=== PATIENT | female | born 1985 | race Caucasian/White ===

== ENCOUNTER 2018-01-10 13:55 | Inpatient (IN) | payer MEDICAID, OTHER ==
[~2018-01-10] VITALS: Ht 180.3 cm; Wt 121.3 kg
[~2018-01-10 13:55] MED LIST: CHLO25 PO; DIVA500T52 PO; LITH300C3 PO; LITH600C PO; QUET200T PO
[2018-01-10] MEDS ORDERED: LEVO25TA9 PO (14:10)
[2018-01-10] MEDS ORDERED: DIPH25 PO (14:11)
[2018-01-10] MEDS ORDERED: METO25 PO (14:11)
[2018-01-10] MEDS ORDERED: TRIH2TAB3 PO (14:12)
[2018-01-10] MEDS ORDERED: CHLO50 PO (14:12)
[2018-01-10] MEDS ORDERED: CHLO100T24 PO (14:13)
[2018-01-10] MEDS ORDERED: TRAZ-147 PO (14:14)
[2018-01-10] MEDS ORDERED: PALI6 PO (14:14)
[2018-01-10 14:40] LABS: AMPHET/METH SCREEN,URINE NEGATIVE (NEGATIVE); BARBITURATE SCREEN, URINE NEGATIVE (NEGATIVE); BENZODIAZEPINES SCREEN,URINE NEGATIVE (NEGATIVE); CANNABINOID SCREEN,URINE NEGATIVE (NEGATIVE); COCAINE SCREEN,URINE NEGATIVE (NEGATIVE); METHADONE SCREEN, URINE NEGATIVE (NEGATIVE); OPIATE SCREEN,URINE NEGATIVE (NEGATIVE); PHENCYCLIDINE SCREEN,URINE NEGATIVE (NEGATIVE)
[2018-01-10 15:01] LABS: BASOPHILS % (AUTO) 0.6 % (0.0-2.0); HEMATOCRIT 39.9 % (36-46); HEMOGLOBIN 13.5 g/dL (12.0-16.0); LYMPHOCYTES # (AUTO) 2.4 K/uL (1.0-4.8); LYMPHOCYTES % (AUTO) 29.7 % (22.0-44.0); MEAN CORPUSCULAR HEMOGLOBIN 28.7 pg (26.0-34.0); MEAN CORPUSCULAR HGB CONC 33.8 G/dL (31.0-37.0); MEAN CORPUSCULAR VOLUME 85 fL (80-100); MONOCYTES # (AUTO) 0.4 K/uL (0.1-1.0); MONOCYTES % (AUTO) 4.7 % (2.0-9.0); NEUTROPHILS # (AUTO) 4.9 K/uL (1.8-7.7); PLATELET COUNT (AUTO) 233 K/uL (150-450); RED BLOOD CELL COUNT(AUTO) 4.71 MIL/uL (4.00-5.20); RED CELL DISTRIBUTION WIDTH 16.7 % (11.5-14.5)
[2018-01-10 15:02] LABS: ANION GAP 8 mmol/L (8-16); CALCIUM, TOTAL 8.9 mg/dL (8.8-10.5); CARBON DIOXIDE 26 mmol/L (22-29); CHLORIDE 104 mmol/L (98-107); GLOMERULAR FILTR. RATE CALC > 60 mL/min (>60); GLUCOSE,RANDOM 96 mg/dL (70-110); POTASSIUM 3.9 mmol/L (3.5-5.1); SODIUM SERUM 138 mmol/L (136-145); UREA NITROGEN, BLOOD 12 mg/dL (7-18)
[2018-01-10 15:08] LABS: ALANINE AMINOTRANSFERASE 23 U/L (12-78); ALBUMIN 3.6 g/dL (3.4-5.0); ALKALINE PHOSPHATASE 87 U/L (46-116); ASPARTATE AMINOTRANSFERASE 14 U/L (15-37); BILIRUBIN,TOTAL 0.2 mg/dL (0.1-1.0); TOTAL PROTEIN, SERUM 7.3 g/dL (6.4-8.2)
[2018-01-10 17:56] LABS: CHOL/HDL RATIO 3.7 (3.9-5.7); CHOLESTEROL 187 mg/dL (131-200); FREE T4 (FREE THYROXINE) 1.02 ng/dL (0.76-1.46); HDL CHOLESTEROL 50 mg/dL (40-60); LDL CHOL (CALC.) 99 mg/dL (0-130); THYROID STIMULATING HORMONE 1.38 uIU/mL (0.36-3.74); TRIGLYCERIDES 189 mg/dL (15-150)
[2018-01-10] MEDS: HALOPERIDOL 5 MG TABLET PO PRN (19:10)
[2018-01-10] MEDS: LORazepam 2 MG TABLET PO PRN (19:10)
[2018-01-10] MEDS: TRIHEXYPHENIDYL HCL 2 MG TABLET PO SCH (19:10)
[2018-01-10 19:22] VITALS: BP 122/96
[2018-01-10] MEDS: DiphenhydrAMINE HCL 25 MG CAPSULE PO SCH (21:09)
[2018-01-10] MEDS: TraZODone HCL 150 MG TABLET PO SCH (21:09)
[2018-01-10] MEDS: ChlorproMAZINE HCL 100 MG TABLET PO SCH (21:09)
[2018-01-10] MEDS: ZOLPIDEM TARTRATE 10 MG TABLET PO PRN (21:10)
[2018-01-11] MEDS: LEVOTHYROXINE SODIUM 50 MCG TABLET PO SCH (06:05)
[2018-01-11 08:22] VITALS: BP 109/68
[2018-01-11] MEDS: METOPROLOL TARTRATE 25 MG TABLET PO SCH (08:58)
[2018-01-11] MEDS: PALIPERIDONE 6 MG ER TABLET PO SCH (09:03)
[2018-01-11] MEDS: TRIHEXYPHENIDYL HCL 2 MG TABLET PO SCH ×3 (09:03→16:22)
[2018-01-11] MEDS: LORazepam 2 MG TABLET PO PRN ×3 (09:08→20:50)
[2018-01-11 16:05] VITALS: BP 107/75
[2018-01-11] MEDS: ChlorproMAZINE HCL 50 MG TABLET PO SCH (16:22)
[2018-01-11] MEDS: ChlorproMAZINE HCL 100 MG TABLET PO SCH (20:05)
[2018-01-11] MEDS: DiphenhydrAMINE HCL 25 MG CAPSULE PO SCH (20:05)
[2018-01-11] MEDS: TraZODone HCL 150 MG TABLET PO SCH (20:05)
[2018-01-11] MEDS ORDERED: ACETAMINOPHEN 325 MG TABLET PO PRN (20:15)
[2018-01-11] MEDS: ZOLPIDEM TARTRATE 10 MG TABLET PO PRN (21:38)
[2018-01-12 01:27] VITALS: BP 114/81
[2018-01-12] MEDS: LEVOTHYROXINE SODIUM 50 MCG TABLET PO SCH (06:32)
[2018-01-12 08:35] VITALS: BP 117/64
[2018-01-12] MEDS: TRIHEXYPHENIDYL HCL 2 MG TABLET PO SCH ×3 (09:31→16:28)
[2018-01-12] MEDS: METOPROLOL TARTRATE 25 MG TABLET PO SCH (09:31)
[2018-01-12] MEDS: PALIPERIDONE 6 MG ER TABLET PO SCH (09:31)
[2018-01-12] MEDS: ChlorproMAZINE HCL 50 MG TABLET PO SCH (16:28)
[2018-01-12 16:56] VITALS: BP 127/83
[2018-01-12 18:44] VITALS: BP 132/87
[2018-01-12] MEDS: IBUPROFEN 400 MG TABLET PO PRN (18:45)
[2018-01-12] MEDS: DiphenhydrAMINE HCL 25 MG CAPSULE PO SCH (20:02)
[2018-01-12] MEDS: ChlorproMAZINE HCL 100 MG TABLET PO SCH (20:02)
[2018-01-12] MEDS: TraZODone HCL 150 MG TABLET PO SCH (20:08)
[2018-01-13 01:39] VITALS: BP 128/80
[2018-01-13] MEDS: LEVOTHYROXINE SODIUM 50 MCG TABLET PO SCH (06:54)
[2018-01-13 08:12] VITALS: BP 147/92
[2018-01-13] MEDS: TRIHEXYPHENIDYL HCL 2 MG TABLET PO SCH ×3 (08:22→17:40)
[2018-01-13] MEDS: LORazepam 2 MG TABLET PO PRN ×2 (08:22→17:02)
[2018-01-13] MEDS: PALIPERIDONE 6 MG ER TABLET PO SCH (08:22)
[2018-01-13] MEDS: METOPROLOL TARTRATE 25 MG TABLET PO SCH (08:22)
[2018-01-13 15:18] VITALS: BP 107/67
[2018-01-13 16:10] VITALS: BP 126/93
[2018-01-13] MEDS: HALOPERIDOL 5 MG TABLET PO PRN (17:02)
[2018-01-13] MEDS: ChlorproMAZINE HCL 50 MG TABLET PO SCH (17:40)
[2018-01-13] MEDS: ChlorproMAZINE HCL 100 MG TABLET PO SCH (20:29)
[2018-01-13] MEDS: TraZODone HCL 150 MG TABLET PO SCH (20:29)
[2018-01-13] MEDS: DiphenhydrAMINE HCL 25 MG CAPSULE PO SCH (20:29)
[2018-01-13] MEDS: ZOLPIDEM TARTRATE 10 MG TABLET PO PRN (21:43)
[2018-01-14] MEDS: LEVOTHYROXINE SODIUM 50 MCG TABLET PO SCH (06:47)
[2018-01-14 06:50] VITALS: BP 137/78
[2018-01-14 08:08] VITALS: BP 129/84
[2018-01-14] MEDS: METOPROLOL TARTRATE 25 MG TABLET PO SCH (08:25)
[2018-01-14] MEDS: TRIHEXYPHENIDYL HCL 2 MG TABLET PO SCH ×3 (08:26→17:42)
[2018-01-14] MEDS: PALIPERIDONE 6 MG ER TABLET PO SCH (08:26)
[2018-01-14] MEDS: LORazepam 2 MG TABLET PO PRN ×2 (08:28→17:42)
[2018-01-14 16:11] VITALS: BP 132/90
[2018-01-14] MEDS ORDERED: MAG HYDROX/AL HYDROX/SIMETH 30 ML SUSP UDCUP PO PRN (17:00)
[2018-01-14] MEDS ORDERED: TRAZ150 PO (17:07)
[2018-01-14] MEDS ORDERED: QUET300T2 PO (17:07)
[2018-01-14] MEDS ORDERED: LITH600 PO (17:07)
[2018-01-14] MEDS ORDERED: LEVO50 PO (17:07)
[2018-01-14] MEDS: ChlorproMAZINE HCL 50 MG TABLET PO SCH (17:42)
[2018-01-14] MEDS: HALOPERIDOL 5 MG TABLET PO PRN (17:43)
[2018-01-14] MEDS: ZOLPIDEM TARTRATE 10 MG TABLET PO PRN (21:34)
[2018-01-14] MEDS: DiphenhydrAMINE HCL 25 MG CAPSULE PO SCH (21:34)
[2018-01-14] MEDS: TraZODone HCL 150 MG TABLET PO SCH (21:34)
[2018-01-14] MEDS: ChlorproMAZINE HCL 100 MG TABLET PO SCH (21:34)
[2018-01-14] MEDS: IBUPROFEN 400 MG TABLET PO PRN (21:35)
[2018-01-15] MEDS: LEVOTHYROXINE SODIUM 50 MCG TABLET PO SCH (06:44)
[2018-01-15 07:10] VITALS: BP 124/65
[2018-01-15 08:10] VITALS: BP 96/60
[2018-01-15] MEDS: LORazepam 2 MG TABLET PO PRN ×2 (08:38→15:53)
[2018-01-15] MEDS: HALOPERIDOL 5 MG TABLET PO PRN (08:38)
[2018-01-15] MEDS: METOPROLOL TARTRATE 25 MG TABLET PO SCH (08:38)
[2018-01-15] MEDS: PALIPERIDONE 6 MG ER TABLET PO SCH (08:38)
[2018-01-15] MEDS: TRIHEXYPHENIDYL HCL 2 MG TABLET PO SCH ×3 (08:39→17:02)
[2018-01-15 14:22] VITALS: BP 102/67
[2018-01-15] MEDS: IBUPROFEN 400 MG TABLET PO PRN (14:22)
[2018-01-15] MEDS: ChlorproMAZINE HCL 50 MG TABLET PO SCH (16:01)
[2018-01-15 16:02] VITALS: BP 123/87
[2018-01-15] MEDS: ChlorproMAZINE HCL 100 MG TABLET PO SCH (20:12)
[2018-01-15] MEDS: TraZODone HCL 150 MG TABLET PO SCH (20:12)
[2018-01-15] MEDS: DiphenhydrAMINE HCL 25 MG CAPSULE PO SCH (20:12)
[2018-01-15] MEDS: ZOLPIDEM TARTRATE 10 MG TABLET PO PRN (20:39)
[2018-01-16 01:00] VITALS: BP 112/73
[2018-01-16] MEDS: LEVOTHYROXINE SODIUM 50 MCG TABLET PO SCH (06:50)
[2018-01-16] MEDS: LORazepam 2 MG TABLET PO PRN ×3 (07:44→20:35)
[2018-01-16] MEDS: TRIHEXYPHENIDYL HCL 2 MG TABLET PO SCH ×3 (08:11→17:01)
[2018-01-16] MEDS: PALIPERIDONE 6 MG ER TABLET PO SCH (08:11)
[2018-01-16] MEDS: METOPROLOL TARTRATE 25 MG TABLET PO SCH (08:11)
[2018-01-16 08:25] VITALS: BP 124/84
[2018-01-16 16:08] VITALS: BP 115/73
[2018-01-16] MEDS: IBUPROFEN 400 MG TABLET PO PRN (16:43)
[2018-01-16] MEDS: ChlorproMAZINE HCL 50 MG TABLET PO SCH (17:01)
[2018-01-16] MEDS: DiphenhydrAMINE HCL 25 MG CAPSULE PO SCH (20:00)
[2018-01-16] MEDS: ChlorproMAZINE HCL 100 MG TABLET PO SCH (20:00)
[2018-01-16] MEDS: TraZODone HCL 150 MG TABLET PO SCH (20:00)
[2018-01-17] MEDS: LEVOTHYROXINE SODIUM 50 MCG TABLET PO SCH (06:28)
[2018-01-17 06:31] VITALS: BP 111/71
[2018-01-17] MEDS: METOPROLOL TARTRATE 25 MG TABLET PO SCH (08:09)
[2018-01-17] MEDS: PALIPERIDONE 6 MG ER TABLET PO SCH (08:09)
[2018-01-17] MEDS: TRIHEXYPHENIDYL HCL 2 MG TABLET PO SCH ×3 (08:10→16:12)
[2018-01-17] MEDS ORDERED: LEVO50TA11 PO (08:25)
[2018-01-17 08:29] VITALS: BP 121/76
[2018-01-17] MEDS: LORazepam 2 MG TABLET PO PRN (09:25)
[2018-01-17] MEDS ORDERED: FLUCONAZOLE 150 MG TABLET PO ONE (09:45)
[2018-01-17 16:12] VITALS: BP 122/92
[2018-01-17] MEDS: ChlorproMAZINE HCL 50 MG TABLET PO SCH (16:12)
[2018-01-17] MEDS: TraZODone HCL 150 MG TABLET PO SCH (20:16)
[2018-01-17] MEDS: ZOLPIDEM TARTRATE 10 MG TABLET PO PRN (20:16)
[2018-01-17] MEDS: ChlorproMAZINE HCL 100 MG TABLET PO SCH (20:16)
[2018-01-17] MEDS: DiphenhydrAMINE HCL 25 MG CAPSULE PO SCH (20:16)
[2018-01-18 00:36] VITALS: BP 102/60
[2018-01-18] MEDS: LEVOTHYROXINE SODIUM 50 MCG TABLET PO SCH (06:39)
[2018-01-18] MEDS: METOPROLOL TARTRATE 25 MG TABLET PO SCH (08:24)
[2018-01-18] MEDS: PALIPERIDONE 6 MG ER TABLET PO SCH (08:25)
[2018-01-18] MEDS: TRIHEXYPHENIDYL HCL 2 MG TABLET PO SCH ×3 (08:25→16:59)
[2018-01-18 08:29] VITALS: BP 119/70
[2018-01-18] MEDS: LORazepam 2 MG TABLET PO PRN ×3 (08:57→21:09)
[2018-01-18 16:02] VITALS: BP 115/71
[2018-01-18] MEDS: ChlorproMAZINE HCL 50 MG TABLET PO SCH (16:59)
[2018-01-18] MEDS: HALOPERIDOL 5 MG TABLET PO PRN ×2 (16:59→21:09)
[2018-01-18] MEDS: DiphenhydrAMINE HCL 25 MG CAPSULE PO SCH (20:45)
[2018-01-18] MEDS: ChlorproMAZINE HCL 100 MG TABLET PO SCH (20:45)
[2018-01-18] MEDS: TraZODone HCL 150 MG TABLET PO SCH (20:45)
[2018-01-19 01:21] VITALS: BP_SYST 113; BP_SYST 121; BP_DIAS 61; BP_DIAS 69
[2018-01-19] MEDS: LEVOTHYROXINE SODIUM 50 MCG TABLET PO SCH (05:53)
[2018-01-19 08:40] VITALS: BP 122/60
[2018-01-19] MEDS: TRIHEXYPHENIDYL HCL 2 MG TABLET PO SCH ×2 (08:50→12:49)
[2018-01-19] MEDS: PALIPERIDONE 6 MG ER TABLET PO SCH (08:50)
[2018-01-19] MEDS: METOPROLOL TARTRATE 25 MG TABLET PO SCH (08:50)
== END 2018-01-19 13:20 | disposition home or self-care (01) | DRG 750 ==
LOC: EMS 13:57 → B3A 17:58 → B2S 01-15 11:46
PROVIDERS: ADMIT Psychiatry & Neurology Psychiatry; ATTEND Psychiatry & Neurology Psychiatry
DX: F25.9 Schizoaffective disorder, unspecified (principal); E66.01 Morbid (severe) obesity due to excess calories; I10 Essential (primary) hypertension; Z68.37 Body mass index [BMI] 37.0-37.9, adult; E03.9 Hypothyroidism, unspecified; E78.5 Hyperlipidemia, unspecified
CPT/HCPCS: 84439; 84443; 99285; G0480